=== PATIENT | female | born 1995 | race Caucasian/White ===

== ENCOUNTER 2019-02-12 14:55 | Inpatient (IN) ==
--- OUTSIDE RECORDS SUMMARY | 2019-02-12 14:59 | External Medical Summary | Continuity of Care Document ---
:1995 Author Name Christopher Mak, Provider Address Unavailable Unavailable , Care Team Providers Name Role Phone Diamond Evans Unavailable [email or web address] Case Jarvis JULIEN Unavailable [email or web address] PCP, NO Unavailable Unavailable Unavailable Unavailable Unavailable Problems Ulcerative colitis (556.9) (K51.90) Supervision of normal first in third trimester (V2 2.0) (Z34.03) Allergies and Adverse Reactions Delzicol CPDR (Allergy) Medications Mesalamine 1.2 GM Oral Tablet Delayed Release; Take 1 tablet twice daily SEKOU Hogan Quantity: 180 Refills: 3 Humira 40 MG/0.4ML Subcutaneous Prefille d Syringe Kit; INJECT 40 MG SQ EVERY OTHER WEEK SEKOU Hogan Start: 10-Nov-2018 Quantity: 1 2 x 1 Kit Box Refills: 5 Folic Acid 400 MCG Oral Tablet; TAKE 1 TABLET DAILY DIRECTED. SEKOU Hogan Quantity: 30 Refills: 5 Ferrous Sulfate 325 (65 Fe) MG Oral Tablet; TAKE 1 TABLET ON CE DAILY WITH MEAL Start: 15-Aug-2015 Refills: 0 Mesalamine 4 GM Rectal Enema; TAKE RECTALLY AT BEDTIME . RETAIN FOR 8 HOURS. SEKOU Hogan Start: 21-Dec-2018 Quantity: 420 Refills: 5 Vitamin D TABS Refills: 0 TABS Refills: 0 Procedures Non-stress test Date: 11-Feb-2019 Vitamin D, 25-Hydroxy Date: 25-Jan-2019 Quantiferon TB Gold Date: 25-Jan-2019 C-Reactive Protein Date: 25-Jan-2019 Comp Metabolic Panel + Liver Panel Date: 25-Jan-2019 CBC With DIFF Date: 25-Jan-2019 History of Complete Colonoscopy Status: Completed Immunizations Fluzone Quadrivalent 0.5 ML Intramuscular Suspension P refilled Syringe On: 25-Oct-2018 16:13 Lot #: [id number], SANOFI PASTEUR Tdap (Adacel) On: 16-Dec-2018 11:38 Lot #: [id number], SANOFI PASTEUR Family History Grandfather Family history of lung cancer (V16.1) (Z80.1) Status: Active Plan of Treatment Planned Encounters Appointment; Jarvis Arellano DO Start: 19-May-2019 10:[address] Planned Observations Planned Goals not documented Results Group B Strep/GARRETT 14-Jan-2019 0:00 GRP B BETA STREP CULTURE - GARRETT ORDERED P ROCEDURE : GRP B Beta Strep Culture -GARRETT; Specime nt : Vaginal/Rectal G roup B Strep Culture : No Group B Strep isolated Non-stress test (Pending) Laboratory: In House 11-Feb-2019 16:39 Non-Stress Test Reactive Vital Signs 11-Feb-2019 14:42 Systolic 120 mm[Hg] Diastolic 74 mm[Hg] Height 66.5 in BMI Calculated 27.35 kg/m2 Weight 172 lb BSA Calculated 1.89 m2 04-Feb-2019 13:39 Systolic 124 mm[Hg] Diastolic 80 mm[Hg] Height 66.5 in BMI Calculated 27.07 kg/m2 Weight 170.25 lb BSA Calculated 1.88 m2 28-Jan-2019 13:52 Systolic 110 mm[Hg] Diastolic 72 mm[Hg] Height 66.5 in BMI Calculated 27.38 kg/m2 Weight 172.2 lb BSA Calculated 1.89 m2 24-Jan-2019 13:43 Systolic 110 mm[Hg] Diastolic 72 mm[Hg] Weight 173 lb Respiration 14 /min Heart Rate 68 /min 21-Jan-2019 13:45 Systolic 102 mm[Hg] Diastolic 68 mm[Hg] Height 66.5 in BMI Calculated 27.54 kg/m2 Weight 173.2 lb BSA Calculated 1.89 m2 14-Jan-2019 14:26 Systolic 100 mm[Hg] Diastolic 70 mm[Hg] Height 66.5 in BMI Calculated 27.27 kg/m2 Weight 171.5 lb BSA Calculated 1.88 m2 Encounters Appointment; Uma Jose DO 11-Feb-2019 15:10 Encounter Diagnosis: Problem not documented Appointment; OB SC1, Nonstress Test 11-Feb-2019 14:30 Encounter Diagnosis: Problem not documented Appointment; Katerin Perea M.D. 04-Feb-2019 13:50 Encounter Diagnosis: Problem not documented Appointment; Arelis Lamb M.D. 28-Jan-2019 13:50 Encounter Diagnosis: Problem not documented Appointment; Asia Sousa PA-C 24-Jan-2019 13:20 Encounter Diagnosis: Problem not documented Appointment; Arelis Lamb M.D. 21-Jan-2019 13:50 Encounter Diagnosis: Problem not documented Appointment; Jarvis Arellano DO 20-Jan-2019 11:00 Encounter Diagnosis: Problem not documented Appointment; Coy Gomez M.D. 14-Jan-2019 14:30 Encounter Diagnosis: Problem not documented Appointment; Beatrice Emerson M.D. 31-Dec-2018 13:50 Encounter Diagnosis: Problem not documented Appointment; OBGYN SC2, Ultrasound 31-Dec-2018 13:30 Encounter Diagnosis: Problem not documented Appointment; Mikhail Lam M.D. 16-Dec-2018 11:50 Encounter Diagnosis: Problem not documented Appointment; Alphonse Bender CRNP 15-Dec-2018 10:00 Encounter Diagnosis: Problem not documented [facility] 15-Dec-2018 9:4 5 Encounter Diagnosis: Problem not documented Appointment; Beatrice Emerson M.D. 25-Oct-2018 15:00 Encounter Diagnosis: Problem not documented Appointment; OB SC1, Nursing Station 25-Oct-2018 13:30 Encounter Diagnosis: Problem not documented Appointment; Diamond Hogan CRNP 21-Oct-2018 9:30 Encounter Diagnosis: Problem not documented Appointment; Jarvis Arellano DO 19-May-2019 10:30 Encounter Diagnosis: Problem not documented
[2019-02-12] MEDS ORDERED: OXYTOCIN 30 UNITS/500 ML BAG IV PRN ×2 (15:08→23:38)
[2019-02-12 15:25] LABS: Hematocrit (blood only) 36.7 % (37-47); Hemoglobin 12.2 g/dL (12.0-16.0); Mean Corpuscular Volume 88.9 fL (80-100); Mean Platelet Volume 12.3 fL (7.4-10.4); Platelet Count 164 K/uL (130-400); RDW Coefficient of Variation 13.4 % (11.5-14.5); RDW Standard Deviation 43.8 fL (36.4-46.3); Red Blood Count 4.13 M/uL (4.2-5.4); White Blood Count 12.03 K/uL (4.8-10.8)
[2019-02-12] MEDS: LACTATED RINGER'S 1,000 ML IV PRN ×3 (15:25→21:16)
[2019-02-12 15:26] LABS: Mean Corpuscular Hgb Conc 33.2 g/dL (32-36)
--- NOTE | 2019-02-12 17:42 | History & Physical Report ---
Date of Service February 12, 2019 Assessment & Plan (1) 40 weeks gestation of : fetus category one. (2) Normal labor: admit, monitor, expectant managment for now. pit/arom as indicated. anticipate . History of Present Illness Chief Complaint: contractions Primary Care Provider: NO PCP Patient is a 23yowf, with iup at 40 1/7 weeks by first trimester ultrasound, not consistent with lmp. Presents to labor and delivery with increasing contractions. Some mucous d/c. no vb. +fm. essentially uncomplicated. Follows with GI for UC which has been fairly stable. Had low lying placenta, resolved at 32 week scan. labs--A+/ab neg/pap nl/ri/r;rnr/hepb-/hiv-/gc/ct-/ cf-/sma-/ gtt x 2 neg/panorama low risk female/afp neg/gbs neg meds--mesalamine both po and rectal enema, vit D, pnv, folic acid,, humira Allergies Allergy/AdvReac Type Severity Reaction Status Date / Time mesalamine [From Delzicol] Allergy Unknown Verified 02/12/19 14:31 Home Medications Home Medications Medication Instructions Recorded Confirmed Type adalimumab [Humira] 40 mg CQWK 02/12/19 02/12/19 History mesalamine 4 g PO DAILY 02/12/19 02/12/19 History vit-iron fum-folic ac 1 tab PO DAILY 02/12/19 02/12/19 History [ Vitamin] Patient History Surgical History H/O colonoscopy Ulcerative colitis Social History Preferred Language: German Communication Ability: Effective Conche Loader And Unloader Required: No Beliefs That Will Affect Care: None marital status: Current Living Situation: Spouse Other Information That Helps Us Care for You: No Feels Safe at Home: Yes Safety Concerns: Feels Safe At This Time Smoking Status: Never smoker Do You Dip or Chew Tobacco: No Second Hand Exposure: No Tobacco Cessation Education Requested by Patient: No Hx Alcohol Use: No Hx Substance Use: No 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 One sexual partner. normal menses. Review of Systems All systems reviewed & are unremarkable except as noted in HPI & below Physical Exam Constitutional: WD/WN, vitals as above Cardiovascular: Extremities: no calf tenderness, no pedal edema and no edema Gastrointestinal (Abdomen): abd--soft, nt, gravid Genitourinary: cx--5/90/-2 toco--2-5min efm--category one, accels present, reactive nst. Results & Data Vital Signs (Past 12 Hours) Vital Signs Temp Pulse Resp BP 02/12/19 15:59 72 108/71 02/12/19 15:32 78 115/70 02/12/19 15:17 97.7 F 18 02/12/19 15:15 97.7 F 18
[2019-02-12] MEDS ORDERED: ePHEDrine sulfate 50 MG/ML AMP ONE (18:10)
[2019-02-12] MEDS ORDERED: fentaNYL citrate 100 MCG/2 ML VIAL ONE (18:10)
[2019-02-12] MEDS ORDERED: BUPIVACAINE 0.25% 30 ML VIAL ONE (18:10)
[2019-02-12] MEDS ORDERED: fentaNYL 2MCG/ML ROPIV 1.25MG/ML 100 ML BAG EPI ONE (18:11)
--- NOTE | 2019-02-12 18:48 | Anesthesiology Consultation ---
Date of Service February 12, 2019 Assessment & Plan (1) Encounter for pre-operative examination: Chart Review Chart Review: Acceptable Risk for Labor Epidural Consults Requested none ASA ASA2 Proposed Anesthesia Anesthesia Type: Labor Epidural Risk / Benefits Reviewed With: PT / POA / Parent / Guardian, Accepts Plan and Informed Consent Obtained History Height/Weight Height: 5 ft 6.5 in Weight: 78.018 kg Allergies Allergy/AdvReac Type Severity Reaction Status Date / Time mesalamine [From Delzicol] Allergy Unknown Verified 02/12/19 14:31 Medications Home Medications Medication Instructions Recorded Confirmed Last Taken adalimumab [Humira] 40 mg CQWK 02/12/19 02/12/19 01/28/19 09:30 ferrous sulfate 325 02/12/19 02/12/19 09:30 mesalamine 4 g PO DAILY 02/12/19 02/12/19 02/12/19 09:30 mesalamine 4 g VA HS 02/12/19 02/12/19 Unknown iy-vg-pzjo-FA-herbal cmplx#190 1 tab PO DAILY 02/12/19 02/12/19 02/12/19 09:30 [Vitamin D3 Complete] vit-iron fum-folic ac 1 tab PO DAILY 02/12/19 02/12/19 02/12/19 09:30 [ Vitamin] Active Medications Generic Name Dose Route Start Last Admin Trade Name Freq PRN Reason Stop Dose Admin Lactated Ringer's 1,000 mls @ 125 mls/hr 02/12/19 15:08 02/12/19 18:13 Lr IV 02/14/19 15:07 999 mls/hr .Q8H PRN Infusion L&D Protocol Protocol Exercise / Class Metabolic Activity II 4-5 Yardwork/Stairs/Walk up hill Past Surgical History Surgical History Ulcerative colitis H/O colonoscopy Past Anesthesia History No Hx of Anesthesia Complications and No Family Hx of Anesthesia Complications History of PONV No Hx of PONV and No Hx of Motion Sickness Social History Smoking Status: Never smoker Do You Dip or Chew Tobacco: No Hx Alcohol Use: No Hx Substance Use: No substance use type: does not use Physical Exam Vital Signs Last Vital Signs Temp 97.7 F 02/12/19 15:17 Pulse 77 02/12/19 18:42 Resp 18 02/12/19 15:17 BP 114/68 02/12/19 18:34 Pulse Ox 98 02/12/19 18:42 ENMT Mouth: no dentition abnormality Thyromental Distance: > or= 3.5 Finger Breadths Mallampati Class: II Neck normal visual inspection Respiratory normal respiratory effort Auscultation: lungs clear to auscultation bilaterally Cardiovascular Rate/Rhythm: regular rate and regular rhythm
[2019-02-12] MEDS ORDERED: DiphenhydrAMINE HCL 50 MG/ML VIAL IV PRN (19:13)
[2019-02-12] MEDS ORDERED: ePHEDrine sulfate 50 MG/ML AMP IV PRN (19:13)
[2019-02-12] MEDS ORDERED: LACTATED RINGER'S 1,000 ML IV PRN (19:13)
[2019-02-12] MEDS ORDERED: ONDANSETRON INJ 2 MG/ML 2 ML VIAL IV PRN (19:13)
[2019-02-12] MEDS ORDERED: fentaNYL 2MCG/ML ROPIV 1.25MG/ML 100 ML BAG EPI PRN (19:13)
[2019-02-12] MEDS ORDERED: NALOXONE HCL 1 MG in SODIUM CHLORIDE 0.9% 1000ML 1,000 ML IV PRN (19:13)
[2019-02-12] MEDS ORDERED: NALOXONE HCL 0.4 MG/1 ML VIAL/CARP IV PRN (19:13)
[2019-02-12] MEDS ORDERED: NALBUPHINE HCL INJ 10 MG/ML AMP IV PRN (19:13)
--- NOTE | 2019-02-12 19:59 | Labor Progress Brief Note ---
Date of Service February 12, 2019 Subjective comfortable Assessment & Plan (1) Normal labor: continue expectant management, fetus category one, anticipate . Physical Exam Constitutional: WD/WN, vitals as above Genitourinary: cx--8-9/100/-1-0 arom--clear toco--q5min efm--130s wtih mod variability, accels to 160s, no decels Results & Data Vital Signs (Past 12 Hours) Vital Signs Temp Pulse Resp BP Pulse Ox 02/12/19 19:52 91 H 100 02/12/19 19:51 61 100/57 L 02/12/19 19:47 64 100 02/12/19 19:46 59 L 102/57 L 02/12/19 19:42 69 98/56 L 100 02/12/19 19:38 62 104/59 L 02/12/19 19:37 60 100 02/12/19 19:32 67 100 02/12/19 19:31 63 105/62 02/12/19 19:30 18 02/12/19 19:27 77 100/58 L 100 02/12/19 19:23 18 02/12/19 19:22 65 99/56 L 99 02/12/19 19:17 73 99 02/12/19 19:16 72 102/60 02/12/19 19:14 66 105/58 L 02/12/19 19:12 84 105/59 L 100 02/12/19 19:10 64 107/59 L 02/12/19 19:08 98.1 F 76 18 117/68 02/12/19 19:07 94 H 100 19 19:06 82 120/69 18/19 19:04 76 125/70 19 19:02 74 123/62 100 18/19 19:00 77 121/77 18/19 18:58 80 131/77 18/19 18:57 83 100 18/19 18:53 85 130/77 18/19 18:52 95 H 100 1819 18:47 77 99 0518/19 18:42 77 98 18/19 18:37 72 100 18/19 18:34 67 114/68 18/19 18:32 75 99 05/18/19 18:27 77 98 02/12/19 18:22 79 99 02/12/19 17:40 76 109/66 02/12/19 15:59 72 108/71 02/12/19 15:32 78 115/70 02/12/19 15:17 97.7 F 18 02/12/19 15:15 97.7 F 18
--- NOTE | 2019-02-12 23:05 | Medical Student Progress Note ---
Date of Service February 12, 2019 Subjective Preoperative Diagnosis: 1. Intrauterine keller 2. Normal labor Postoperative Diagnosis 1. Intrauterine keller 2. Normal labor Operative Procedures: 1. Epidural anesthesia 2. Amnionotomy 3. Normal spontaneous vaginal delivery 4. Stellate vaginal tear 5. Bilateral labial tear The patient is a 1 para 0 at 40 1/7 weeks that presented to L&D with regular contractions. She was found to be 5/90/-1 and had a category I tracing. She was expectantly managed and then received epidural anesthesia. surveillance remained reassuring. Following the epidural she was 9 cm dilated with bulging membranes. Amniotomy was performed with clear fluid. Shortly thereafter, the patient then felt pressure and was found to be 10 cm. She pushed for approximately one hour and then delivered a viable female infant in JONATHAN presentation. Nose and mouth suctioned and there was no nuchal cord. The anterior shoulder was delivered and the infant was then delivered easily. The infant was placed on the mother's chest for drying and warming. The umbilical cord was clamped and cut. Cord blood was collected. The placenta was delivered spontaneously and was intact and there was a three vessel cord. Uterine massage was performed and the patient continued to have some bleeding. She received IV Pitocin and IM methergine. Internal exam revealed a stellate vaginal tear which was repaired with 3-0 suture. There were also small bilateral labial tears which were repaired with 4-0 suture. Estimated total blood loss was 400mL. Mother and were doing well at the end of the procedures. scores 8, 9. Physical Exam Vital Signs (Past 24 Hours): Last Vital Signs Temp 36.7 C 02/12/19 19:08 Pulse 82 02/12/19 22:56 Resp 18 02/12/19 21:30 BP 109/60 02/12/19 22:56 Pulse Ox 100 02/12/19 22:42
[2019-02-12] MEDS ORDERED: SUPERCREAM 0.870% 15 GM JAR EXT PRN (23:38)
[2019-02-12] MEDS ORDERED: OXYCODONE/ACETAMINOPHEN 5mg/325mg TAB PO PRN (23:38)
[2019-02-12] MEDS ORDERED: METHYLERGONOVINE MALEATE 0.2 MG/ML AMP IM ONE (23:38)
[2019-02-12] MEDS ORDERED: BENZOCAINE 20% AER SPR 82.5 GM CAN EXT PRN (23:38)
[2019-02-12] MEDS ORDERED: HYDROCORTISONE ACETATE 25 MG SUPP PR PRN (23:38)
[2019-02-12] MEDS ORDERED: DIPHTHERIA/TETANUS/PERTUSSIS 0.5 ML SYR/VIAL IM ONE (23:38)
[2019-02-12] MEDS ORDERED: ACETAMINOPHEN 325 MG TAB PO PRN (23:38)
[2019-02-12] MEDS ORDERED: BISACODYL 10 MG SUPP PR PRN (23:38)
--- NOTE | 2019-02-12 23:40 | Delivery Summary ---
DATE OF OPERATION: 02/12/2019 PREOPERATIVE DIAGNOSES: 1. Intrauterine at 40 and 1/7 weeks. 2. Active labor. POSTOPERATIVE DIAGNOSES: 1. Intrauterine at 40 and 1/7 weeks. 2. Active labor. PROCEDURES: 1. Epidural anesthesia. 2. Amniotomy. 3. Normal spontaneous vaginal delivery. 4. Stellate vaginal laceration with repair. 5. Bilateral labial lacerations with repair. SURGEON: Beatrice Emerson MD SENIOR TECHNICAL EDITOR: JORGE Lucas. ESTIMATED BLOOD LOSS: 400 mL ANESTHESIA: Epidural and local infiltration of lidocaine to the perineum. DESCRIPTION OF PROCEDURE: The patient presented to labor and delivery in active labor at 5, 90, and -2. She was expectantly managed. She underwent an epidural anesthetic and was found to be 8-9 cm with a bulging bag in 0 station. Amniotomy was performed for clear fluid. She was allowed to labor down until she felt the urge to push. At that time, she pushed for a little over an hour to deliver a viable female infant in JONATHAN presentation. The nose and mouth were bulb suctioned. There was no nuchal cord and the rest of the infant was delivered without difficulty. The was placed on the maternal abdomen for drying and attention. The cord was clamped and cut at 1 minute of life. Cord blood and segment were obtained. Placenta was delivered spontaneously intact with a 3-vessel cord. Cervix, sulci, rectum, and perineal body were examined and found to be intact. However, a stellate vaginal laceration was identified. This was repaired starting on the patient's left at the apex coming to the vaginal introitus and then another suture was started at the right side apex coming to the introitus and the rest of the repair was performed. Then bilateral labial lacerations were repaired with interrupted sutures of 4-0 Vicryl. The area did require some infiltration with lidocaine for suturing. Once this was performed, hemostasis was noted to be excellent with dilute Pitocin and IM Methergine. Rectum was examined and no sutures in the rectum. Apgars were 8 and 9. Mother and baby were doing well at the end of the delivery. I attest to the content of the Intraoperative Record and any orders documented therein. Any exception s are noted below.
[2019-02-13 06:21] LABS: Hematocrit (blood only) 33.6 % (37-47); Hemoglobin 11.3 g/dL (12.0-16.0)
--- NOTE | 2019-02-13 08:18 | Obstetrical Progress Note ---
Date of Service February 13, 2019 Assessment & Plan (1) Normal labor: Doing well. routine pp care. Subjective Ambulation: ambulating normally Passing Gas:: Yes Diet Tolerance:: regular diet Lochia:: Small Feeding Type:: breast feeding Bottom ok, some discomfort Physical Exam Vital Signs (Past 24 Hours) Last Vital Signs Temp 98.4 F 02/13/19 03:38 Pulse 82 02/13/19 03:38 Resp 16 02/13/19 03:38 BP 120/70 02/13/19 03:38 Pulse Ox 96 02/13/19 03:38 Constitutional WD/WN, vitals as above Cardiovascular Extremities: no calf tenderness and no edema Gastrointestinal (Abdomen) soft, nt, nd, ff/nt at u
[2019-02-13] MEDS: DOCUSATE SODIUM 100 MG CAP PO SCH ×2 (09:16→22:46)
[2019-02-13] MEDS: PRENATAL VITAMIN 1 TAB PO SCH (09:16)
[2019-02-13] MEDS: IBUPROFEN 600 MG TAB PO PRN ×2 (09:16→22:46)
--- NOTE | 2019-02-13 09:28 | Anesthesia Procedure Note ---
Date of Service February 13, 2019 Anesthesia Post Epidural Note Vital Signs Vital Signs: Temp Pulse Pulse Resp BP BP Pulse Ox 02/13/19 03:38 36.9 C 82 16 120/70 96 02/13/19 01:07 37.1 C 76 18 116/70 97 02/13/19 00:45 36.6 C 85 16 111/71 02/13/19 00:15 83 18 120/72 02/12/19 23:42 73 18 120/67 02/12/19 23:28 76 20 125/60 02/12/19 23:13 81 18 130/57 L 02/12/19 22:56 82 16 109/60 02/12/19 22:42 84 100 02/12/19 22:41 85 113/65 02/12/19 22:40 78 18 109/59 L 02/12/19 22:37 76 100 02/12/19 22:32 88 100 02/12/19 22:27 102 H 100 02/12/19 22:26 96 H 109/53 L 02/12/19 22:22 99 H 98 02/12/19 22:17 111 H 98 02/12/19 22:15 20 02/12/19 22:12 134 H 99 02/12/19 22:11 132 H 90 02/12/19 22:07 147 H 97 02/12/19 22:04 118 H 120/56 L 02/12/19 22:02 123 H 98 02/12/19 22:00 20 02/12/19 21:59 118 H 93 02/12/19 21:57 138 H 99 02/12/19 21:53 117 H 89 L 02/12/19 21:52 113 H 98 02/12/19 21:47 101 H 99 02/12/19 21:46 114 H 85 L 02/12/19 21:45 20 02/12/19 21:42 100 H 107/59 L 98 02/12/19 21:40 122 H 93 02/12/19 21:37 90 99 02/12/19 21:35 119 H 89 L 02/12/19 21:32 116 H 100 02/12/19 21:30 18 02/12/19 21:29 119 H 93 02/12/19 21:28 80 120/62 02/12/19 21:27 96 H 100 05/18/19 21:22 86 100 05/18/19 21:17 99 H 99 05/18/19 21:12 92 H 100 05/18/19 21:11 80 114/69 05/18/19 21:07 75 100 05/18/19 21:02 77 100 05/18/19 21:00 20 05/18/19 20:57 79 100 05/18/19 20:56 73 108/62 05/18/19 20:52 86 100 05/18/19 20:47 70 100 05/18/19 20:43 75 113/75 05/18/19 20:42 75 100 05/18/19 20:37 71 100 05/18/19 20:32 84 100 05/18/19 20:30 18 051819 20:27 65 100 05/18/19 20:26 72 106/63 05/18/19 20:22 64 100 05/18/19 20:17 65 100 05/18/19 20:15 16 051819 20:12 73 100 05/18/19 20:11 74 117/64 05/18/19 20:07 75 100 05/18/19 20:02 63 100 05/18/19 20:00 18 051819 19:57 69 125/73 100 05/18/19 19:52 91 H 100 0518/19 19:51 61 100/57 L 0518/19 19:47 64 100 05/18/19 19:46 59 L 102/57 L 0518/19 19:45 20 05/18/19 19:42 69 98/56 L 100 0518/19 19:38 62 104/59 L 0518/19 19:37 60 100 05/18/19 19:32 67 100 05/18/19 19:31 63 105/62 05/18/19 19:30 18 05/18/19 19:27 77 100/58 L 100 05/18/19 19:23 18 05/18/19 19:22 65 99/56 L 99 05/18/19 19:17 73 99 05/18/19 19:16 72 102/60 05/18/19 19:14 66 105/58 L 05/18/19 19:12 84 105/59 L 100 05/18/19 19:10 64 107/59 L 05/18/19 19:08 36.7 C 76 18 117/68 02/12/19 19:07 94 H 100 02/12/19 19:06 82 120/69 02/12/19 19:04 76 125/70 02/12/19 19:02 74 123/62 100 02/12/19 19:00 77 121/77 02/12/19 18:58 80 131/77 02/12/19 18:57 83 100 02/12/19 18:53 85 130/77 02/12/19 18:52 95 H 100 02/12/19 18:47 77 99 02/12/19 18:42 77 98 02/12/19 18:37 72 100 02/12/19 18:34 67 114/68 02/12/19 18:32 75 99 02/12/19 18:27 77 98 02/12/19 18:22 79 99 02/12/19 17:40 76 109/66 02/12/19 15:59 72 108/71 02/12/19 15:32 78 115/70 02/12/19 15:17 36.5 C 18 02/12/19 15:15 36.5 C 18 Pain Intensity Lower Abdomen: Pain Intensity: 2 Notes Mental Status: alert / awake / arousable Patient Amnestic to Procedure: No Nausea / Vomiting: adequately controlled Pain: adequately controlled Airway Patency, RR, SpO2: stable & adequate BP & HR: stable & adequate Hydration State: stable & adequate Anesthetic Complications: no major complications apparent Epidural: Removed without complications and With tip intact Notes: Awake, doing well, Has been OOB, ambulating. Denies any paresthesia, YOUNGBLOOD or backache. Epidural site looks clean and dry without signs of edema or erythema.
[2019-02-13] MEDS ORDERED: BISACODYL 5 MG TABEC PO SCH (20:00)
--- NOTE | 2019-02-14 06:58 | Obstetrical Progress Note ---
Date of Service <David Cervantes MD - Last Filed: 02/14/19 06:58> February 14, 2019 Assessment & Plan <David Cervantes MD - Last Filed: 02/14/19 06:58> (1) (normal spontaneous vaginal delivery): day 2 s/p at 40 W 1 D Vital Signs Reviewed and WNL Hemoglobin 11.3 Blood type A+, GBS - Rubella Immune Patient doing very well clinically, eating, walking and using restroom without difficulty Encouraged ambulation as tolerated, continuing with breast feeding Counselled patient on all discharge instructions and follow up appointment Day #:: 2 Subjective <David Cervantes MD - Last Filed: 02/14/19 06:58> Ambulation: ambulating normally Voiding: no voiding problems Passing Gas:: Yes Diet Tolerance:: regular diet Lochia:: Small Feeding Type:: breast feeding Mild crampy uterine pain, intermittently Constitutional: no fever, no chills and no sweats Respiratory: no cough and no dyspnea Cardiovascular: no chest pain, no dyspnea and no calf pain Physical Exam <David Cervantes MD - Last Filed: 02/14/19 06:58> Vital Signs (Past 24 Hours) Last Vital Signs Temp 36.6 C 02/13/19 23:25 Pulse 65 02/13/19 23:25 Resp 18 02/13/19 23:25 BP 105/63 02/13/19 23:25 Pulse Ox 97 02/13/19 12:00 Constitutional well developed and well nourished; no acute distress Respiratory normal respiratory effort; no respiratory distress, no labored breathing and does not use accessory muscles Auscultation: lungs clear to auscultation bilaterally Cardiovascular RRR, no murmur, no edema Genitourinary OB Exam Abdomen: + fundal height Fundus: + firm and + relation to umbilicus (2 cm below umbilicus); not tender <Beatrice Emerson MD, FACOG - Last Filed: 02/14/19 07:48> Co-Signing Physician Notes Resident Physician Supervision Note: I interviewed and examined the patient. Discussed with Dr. Cervantes and agree with findings and plan as documented in the note. Any exceptions or clarifications are listed here: Doing well. Instuctions given. Plan d/c home. Documented By: Beatrice Emerson MD, FACOG Resident Activity Tracking <David Cervantes MD - Last Filed: 02/14/19 06:58> Resident Involvement: Resident Care Provided Care Provided: Adult Hospital Medicine
[2019-02-14] MEDS: DOCUSATE SODIUM 100 MG CAP PO SCH (07:43)
[2019-02-14] MEDS: PRENATAL VITAMIN 1 TAB PO SCH (07:43)
== END 2019-02-14 18:46 | disposition home or self-care (01) | DRG 807 ==
LOC: OPB 14:55 → 4S1 14:57 → 4S2 02-13 01:05

== ENCOUNTER 2021-03-16 08:49 | Inpatient (IN) ==
[2021-03-16] MEDS ORDERED: LACTATED RINGER'S 1,000 ML IV PRN (09:14)
[2021-03-16] MEDS ORDERED: BUPIVACAINE 0.25% 30 ML VIAL ONE (09:16)
[2021-03-16] MEDS ORDERED: fentaNYL 2MCG/ML ROPIVACAINE 1.25MG/ML 100 ML BAG EPI ONE (09:16)
[2021-03-16] MEDS ORDERED: ePHEDrine sulfate 50 MG/ML AMP ONE (09:16)
[2021-03-16] MEDS ORDERED: fentaNYL citrate 100 MCG/2 ML VIAL ONE (09:16)
[2021-03-16] MEDS ORDERED: SODIUM CHLORIDE 0.9% INJ 10 ML VIAL ONE (09:16)
--- NOTE | 2021-03-16 09:18 | Labor Progress Brief Note ---
Date of Service March 16, 2021 Subjective at 39w1d with c/o contractions Q12min last night closing down to Q5min this morning, no ROM, no VB, good FM. Prior uncomplicated vaginal delivery with epidural, wants same for this delivery. Assessment & Plan (1) Normal labor and delivery: Patient labored spontaneously to near complete dilation. Would still like epidural if at all possible, and will get STAT labs and IV placement / bolus now. GBS neg. Physical Exam Physical Exam: lip/100/+1/intact mucus plug material on labia FHT Cat 1 [place] Q2-5 Results & Data ([facility]) Vital Signs (Past 12 Hours) Vital Signs Temp Pulse Resp BP 03/16/21 08:56 98.2 F 67 20 107/64 Coding Level of Care Code None Diagnoses Normal labor and delivery O80
--- NOTE | 2021-03-16 09:21 | Anesthesiology Consultation ---
Date of Service March 16, 2021 Assessment & Plan (1) Encounter for pre-operative examination: Chart Review Chart Review: Acceptable Risk for Labor Epidural (Labs pending) History Allergies Allergy/AdvReac Type Severity Reaction Status Date / Time mesalamine [From Delzicol] Allergy Intermediate kidney Verified 03/12/21 14:46 function levels went up Medications Home Medications Medication Instructions Recorded Confirmed Last Taken Vitamin 1 tab PO QAM 02/12/19 03/12/21 11/11/19 09:00 mesalamine 4 gram/60 mL enema See Rx Instructions .ROUTE 05/10/20 03/12/21 Unknown .COMPLEX #1680 ml adalimumab 40 mg/0.4 mL See Rx Instructions .ROUTE 02/19/21 03/12/21 Unknown subcutaneous syringe kit .COMPLEX #2 ea Past Medical History Medical History History of anemia History of anesthesia reaction during last colonoscopy in 2017 BP dropped very low, had to stop procedure early Normal labor (normal spontaneous vaginal delivery) Patient is a currently breast-feeding mother Past Family History Family History Grandfather Lung cancer Other No family history of adverse response to anesthesia Denies family history of Ovarian cancer Prostate cancer Myocardial infarction Breast cancer Colorectal cancer Past Surgical History Surgical History History of colonoscopy with polypectomy History of esophagogastroduodenoscopy (EGD) History of tooth extraction under local Social History Smoking Status: Never smoker Hx Alcohol Use: No Hx Substance Use: No substance use type: does not use Physical Exam Vital Signs Last Vital Signs Temp 36.8 C 03/16/21 08:56 Pulse 67 03/16/21 08:56 Resp 20 03/16/21 08:56 BP 107/64 03/16/21 08:56
[2021-03-16 09:42] LABS: Hematocrit (blood only) 40.6 % (37-47); Hemoglobin 14.2 g/dL (12.0-16.0); Mean Corpuscular Hemoglobin 32.9 pg (25-34); Mean Corpuscular Volume 94.2 fL (80-100); Mean Platelet Volume 11.8 fL (7.4-10.4); Platelet Count 153 K/uL (130-400); RDW Coefficient of Variation 13.3 % (11.5-14.5); RDW Standard Deviation 46.2 fL (36.4-46.3); Red Blood Count 4.31 M/uL (4.2-5.4)
[2021-03-16] MEDS: OXYTOCIN 30 UNITS/500 ML BAG IV PRN ×2 (09:50→11:08)
--- NOTE | 2021-03-16 09:57 | Delivery Summary ---
Vaginal Delivery Summary Date of Service March 16, 2021 Vaginal Delivery Summary DIAGNOSES: 1. Liang intrauterine at 39w1d gestation. 2. Spontaneous onset of labor. 3. Group B Streptococcus Neg. PROCEDURE: Spontaneous vaginal delivery without significant laceration. SURGEON: Katerin Perea MD. SCANNING SUPERVISOR: None. ESTIMATED BLOOD LOSS: 350 mL. COMPLICATIONS: None. PLACENTA: Spontaneous and intact with a 3-vessel cord. DISPOSITION: Stable to labor and delivery. DESCRIPTION: The patient pushed well and brought the head to in DOA position. The 's head was allowed to deliver with contraction force and no further active pushing, with the perineum protected during this time. The shoulders delivered easily with a maternal pushing effort. There was no nuchal cord. The left shoulder was anterior. The shoulders and body delivered without any difficulty, and the infant was placed on the maternal abdomen. It was vigorous and moving all extremities, and making respiratory efforts. The cord was doubly clamped by the MD and then cut. The placenta delivered spontaneously and was noted to be intact and with a 3VC. The cervix, vagina and perineum were examined and were found to be without defect requiring repair. The fundus was firm and lochia minimal immediately after delivery. [facility] Vaginal Delivery Charge Vaginal Delivery Codes: 43336 global code for the antepartum, delivery, and post-
[2021-03-16] MEDS ORDERED: oxyCODONE/ACETAMINOPHEN 5mg/325mg TAB PO PRN (11:13)
[2021-03-16] MEDS ORDERED: BENZOCAINE 20% AER SPR 82.5 GM CAN EXT PRN (11:13)
[2021-03-16] MEDS ORDERED: ACETAMINOPHEN 325 MG TAB PO PRN (11:13)
[2021-03-16] MEDS ORDERED: SUPERCREAM 0.870% 15 GM JAR EXT PRN (11:13)
[2021-03-16] MEDS ORDERED: DIPHTHERIA/TETANUS/PERTUSSIS 0.5 ML SYR/VIAL IM ONE (11:13)
[2021-03-16] MEDS ORDERED: HYDROCORTISONE ACETATE 25 MG SUPP PR PRN (11:13)
[2021-03-16] MEDS: IBUPROFEN 600 MG TAB PO PRN (11:33)
[2021-03-16] MEDS: DOCUSATE SODIUM 100 MG CAP PO SCH (20:18)
[2021-03-17 06:07] LABS: Hematocrit (blood only) 36.9 % (37-47); Hemoglobin 12.8 g/dL (12.0-16.0); Mean Corpuscular Hemoglobin 33.2 pg (25-34); Mean Corpuscular Hgb Conc 34.7 g/dL (32-36); Mean Corpuscular Volume 95.8 fL (80-100); Mean Platelet Volume 11.9 fL (7.4-10.4); Platelet Count 139 K/uL (130-400); RDW Coefficient of Variation 13.6 % (11.5-14.5); RDW Standard Deviation 47.7 fL (36.4-46.3); Red Blood Count 3.85 M/uL (4.2-5.4); White Blood Count 13.23 K/uL (4.8-10.8)
[2021-03-17] MEDS ORDERED: PRENATAL VITAMIN 1 TAB PO SCH (08:00)
[2021-03-17] MEDS: DOCUSATE SODIUM 100 MG CAP PO SCH (08:10)
[2021-03-17] MEDS: IBUPROFEN 600 MG TAB PO PRN (08:10)
--- NOTE | 2021-03-17 09:12 | Obstetrical Progress Note ---
Date of Service March 17, 2021 Subjective Ambulation: ambulating normally Voiding: no voiding problems Passing Gas:: Yes Diet Tolerance:: regular diet Lochia:: Small Feeding Type:: breast feeding Physical Exam Constitutional WD/WN, vitals as above Eyes PERRL, conjunctivae normal, anicteric sclerae Neck normal visual inspection Respiratory normal respiratory effort and able to speak in complete sentences; no respiratory distress and no labored breathing Cardiovascular Rate/Rhythm: regular rate and regular rhythm Extremities: no edema Chest (Breasts) Chest: normal inspection of chest Gastrointestinal (Abdomen) Inspection/Auscultation: abdomen normal to inspection Soft, postgravid Psychiatric A+Ox3, euthymic affect Genitourinary OB Exam Abdomen: + fundal height Fundus: + firm and + relation to umbilicus (fundus just below umbilicus); not tender Results & Data ([facility]) Vital Signs (Past 12 Hours) Vital Signs Temp Pulse Resp BP Pulse Ox 03/17/21 04:00 98.1 F 67 16 99/64 L 96 03/16/21 23:00 98.2 F 61 16 99/60 L 96
== END 2021-03-17 12:20 | disposition home or self-care (01) | DRG 807 ==
LOC: OPB 08:49 → 4S1 08:49 → 4S2 14:13

== ENCOUNTER 2023-02-06 07:45 | Inpatient (IN) ==
[2023-02-06] MEDS ORDERED: OXYTOCIN 30 UNITS/500 ML BAG IV PRN ×3 (08:33→16:41)
[2023-02-06] MEDS ORDERED: LACTATED RINGER'S 1,000 ML IV PRN (08:33)
[2023-02-06] MEDS ORDERED: LIDOCAINE 1% LOCAL 20 ML VIAL INFIL PRN (08:33)
--- NOTE | 2023-02-06 08:56 | History & Physical Report ---
Date of Service February 06, 2023 Assessment & Plan (1) Anemia: (2) Encounter for supervision of normal in multigravida: (3) Ulcerative proctosigmoiditis: Plan Miley is a 27 year-old female at 40w6d gestation who presents today for post-dates induction of labor. -Plan to proceed with induction of labor, will start Pitocin -A+, GBS negative, Rubella immune -3 cm/50%/-2 station, fetus cat 1 -Patient undecided at this time if she desires epidural Admission and Anticipated Discharge Date Admission Date: February 06, 2023 History of Present Illness Primary Care Provider: Andrea Saravia MD Miley is a 27 year-old female at 40w6d gestation who presents today for post-dates induction of labor. Her past medical history is significant for ulcerative colitis. She notes normal movement, denies loss of fluid, vaginal bleeding, or any current contractions. READING SPECIALIST History -Normal PAPs -No known history of STDs Del. Date GA wks Lbr Lgth wt Sex Type del Anes Place Del Prov ? Comment 02/12/19 40 8lb 7oz F Epidu ral [facility] Dr. Emerson No 03/16/21 39 7lb 10.8oz F No ne [facility] Dr. Perea No OB Labs: Blood Type A Positive 08/19/22 Antibody Screen NEGATIVE 08/19/22 Hemoglobin 11.5 g/dl (12.0-16.0) L 11/14/22 Hematocrit 34.8 % (37.0-47.0) L 11/14/22 Mean Corpuscular Volume 89.2 fL (80.0-100.0) 08/24/22 Platelet Count 193 K/uL (130-400) 08/24/22 Rubella IgG Antibody Immune (Immune) 08/19/22 Rapid Plasma Reagin Nonreactive (Nonreactive) 08/19/22 Hepatitis B Surface Antigen Neg (Neg) 09/11/20 Hepatitis B Surface Antigen. NON-REACTIVE (NON-REACTIVE) 08/19/22 Hepatitis C Antibody (EIA) NON-REACTIVE (NON-REACTIVE) 08/19/22 HIV (1&2) Ab and P24 Ag, 4th Gener Neg (Neg) 09/11/20 HIV (1&2) Ag and Ab Confirmation NON-REACTIVE (NON-REACTIVE) 08/19/22 Glucose 1 Hour 50 gm Load 94 mg/dl (70-130) 11/14/22 OB Optional Labs: Chlamydia trachomatis RNA Not Detected (NotDetected) 07/09/22 Neisseria gonorrhoeae RNA Not Detected (NotDetected) 07/09/22 Thyroid Stimulating Hormone (TSH) 2.401 uIu/ml (0.300-4.500) 06/18/22 Labs Reviewed: low risk panorama--akh afp declined neg cf/sma previous Allergies Allergy/AdvReac Type Severity Reaction Status Date / Time mesalamine [From Delzicol] Allergy Intermediate kidney Verified 02/05/23 15:09 function levels went up Home Medications Medication Instructions Recorded Confirmed Type adalimumab 40 mg/0.4 mL See Rx Instructions .Route 04/15/22 02/05/23 Rx subcutaneous syringe kit .COMPLEX #4 KITS (Humira(CF)) mesalamine 4 gram/60 mL enema 4 g AK HS 08/24/22 02/05/23 History betamethasone dipropionate 0.05 % 1 applic topical DAILY #60 mL 12/04/22 02/05/23 Rx lotion ketoconazole 2 % shampoo 1 applic topical .COMPLEX #120 mL 12/04/22 02/05/23 Rx Patient History Medical History History of anemia History of anesthesia reaction History of chicken pox Mother currently breast-feeding Psoriasis Ulcerative colitis Surgical History History of colonoscopy with polypectomy History of esophagogastroduodenoscopy (EGD) Family History Grandfather Lung cancer Other No family history of adverse response to anesthesia Denies family history of Ovarian cancer Prostate cancer Myocardial infarction Breast cancer Colorectal cancer Social History Smoking Status: Never smoker Second Hand Exposure: No; Do You Dip or Chew Tobacco: No; Hx Alcohol Use: No Hx Substance Use: No Preferred Language: Wolof Communication Ability: Effective Visual Impairment: No Limitations Hearing Ability: Normal Voip Engineer Required: No Beliefs That Will Affect Care: None marital status: marital status details: London Mccann (36) [phone] Current Living Situation: Spouse and Family Current Living Situation Comment: Lives with spouse, 2 children, rabbit, dog current occupational status: unemployed current occupation: homemaker Feels Safe at Home: Yes Childhood Exposure to Second-Hand Smoke: Yes Dental Care, Regularly: Yes Physical Activity Frequency: 5-6 Times per Week Seatbelt Use: always Sunscreen Use: Yes Assistive Devices: None Review of Systems As per HPI Physical Exam Constitutional: WD/WN, vitals as above Eyes: Anicteric sclerae ENMT: External ears and nose normal, moist mucous membranes Respiratory: normal respiratory effort, lungs clear to auscultation Cardiovascular: RRR, no murmur, no edema No lower extremity edema Skin: no rashes, warm and dry Genitourinary: Manual OB Exam: + cervical dilation 3 cm, + cervical effacement 50% and + station -2 OB Exam Monitor Tracing: + external FHT monitor used and + category I Estimated weight 8-9 lbs Results & Data Vital Signs (Past 12 Hours) Vital Signs Temp Pulse Resp BP 02/06/23 08:02 36.6 C 69 20 114/67 Supervising Physician Co-Signing Physician Notes Resident Physician Supervision Note: I interviewed and examined the patient. Discussed with Dr. Justice and agree with findings and plan as documented in the note. Any exceptions or clarifications are listed here: Patient is a with iup at 40 5/7 weeks who presents for postdates induction. Was 1.5cm in the office yesterday. Had discussed with Dr. Jessica abad pit today. On my exam she is a tight 3/50/- 2/mid/mod. Do not think will benefit alot from a abad. Plan to start pitocin. fetus category one. Anticipate . Documented By: Beatrice Emerson MD, FACOG Resident Activity Tracking Resident Involvement: Resident Care Provided Care Provided: OB Delivery
[2023-02-06 09:19] LABS: Hematocrit (blood only) 34.5 % (37.0-47.0); Hemoglobin 11.9 g/dl (12.0-16.0); Mean Corpuscular Hemoglobin 32.2 pg (25.0-34.0); Mean Corpuscular Hgb Conc 34.5 g/dL (32.0-36.0); Mean Corpuscular Volume 93.2 fL (80.0-100.0); Platelet Count 126 K/uL (130-400); RDW Coefficient of Variation 13.2 % (11.5-14.5); RDW Standard Deviation 45.3 fL (36.4-46.3); White Blood Count 12.92 K/ul (4.8-10.8)
--- NOTE | 2023-02-06 14:12 | Labor Progress Brief Note ---
Date of Service February 06, 2023 Subjective Feeling ctx Assessment & Plan (1) Encounter for supervision of normal in multigravida: Plan: 27 yo at 40 5/7 wga admitted for IOL VSS Fetus cat 1 Labor - s/p arom, pit at 13 gbs neg declines epidural Admission and Anticipated Discharge Date Admission Date: February 06, 2023 Physical Exam Genitourinary: Manual OB Exam: + cervical dilation 4 cm, + cervical effacement 60% and + station -2 OB Exam Monitor Tracing: + external FHT monitor used, + external uterine monitor used (q3) and + category I (125/mod/+accel/-decel) Results & Data Vital Signs (Past 12 Hours) Vital Signs Temp Pulse Resp BP 02/06/23 13:20 69 02/06/23 13:20 123/70 02/06/23 11:48 65 02/06/23 11:48 100/59 L 02/06/23 08:02 97.9 F 69 20 114/67 Coding Level of Care Code None Diagnoses Encounter for supervision of normal in multigravida Z34.80
--- NOTE | 2023-02-06 15:42 | Labor Progress Brief Note ---
Date of Service February 06, 2023 Subjective Desires check Assessment & Plan (1) Encounter for supervision of normal in multigravida: Plan: 27 yo at 40 5/7 wga admitted for IOL VSS Fetus cat 1 Labor - has progressed but now compound hand noted despite head palpating well applied previously. Has had significant amount of fluid come out since arom so ?if it moved during that. Discussed this w/ pt and attempted to reduce the compound and it did respond so will need to continue to monitor. Discussed if persists with this being her 3rd baby, as long as still progresses can still attempt delivery as majority of cases have uncomplicated delivery but did discuss potential risk associated if persists gbs neg declines epidural Admission and Anticipated Discharge Date Admission Date: February 06, 2023 Physical Exam Genitourinary: Manual OB Exam: + cervical dilation 8 cm, + cervical effacement 70% and + station 0 OB Exam Monitor Tracing: + external FHT monitor used, + external uterine monitor used (q3) and + category II (140s/mod/+accel/variables noted) compound presentation palpated with hand on pt's left, was able to reduce the hand a bit Results & Data Vital Signs (Past 12 Hours) Vital Signs Temp Pulse Resp BP 02/06/23 14:49 20 02/06/23 14:49 98.2 F 20 02/06/23 14:49 78 02/06/23 14:49 112/72 02/06/23 13:20 69 02/06/23 13:20 123/70 02/06/23 11:48 65 02/06/23 11:48 100/59 L 02/06/23 08:02 97.9 F 69 20 114/67 Coding Level of Care Code None Diagnoses Encounter for supervision of normal in multigravida Z34.80
[2023-02-06] MEDS ORDERED: DIPHTHERIA/TETANUS/PERTUSSIS Vaccine (Tdap, Age 7+yrs) 0.5mL SYR/VL IM ONE (16:41)
[2023-02-06] MEDS ORDERED: HYDROCORTISONE ACETATE 25 MG SUPP PR PRN (16:41)
[2023-02-06] MEDS ORDERED: bisacodyL 10 MG SUPP PR PRN (16:41)
[2023-02-06] MEDS ORDERED: ACETAMINOPHEN 325 MG TAB PO PRN (16:41)
[2023-02-06] MEDS ORDERED: BENZOCAINE 20% AER SPR 82.5 GM CAN EXT PRN (16:41)
--- NOTE | 2023-02-06 16:47 | Delivery Summary ---
Vaginal Delivery Summary Date of Service February 06, 2023 Vaginal Delivery Summary (vaginal laceration) PREOPERATIVE DIAGNOSIS: 1. Single intrauterine at 40 5/7 2. Post-dates IOL POSTOPERATIVE DIAGNOSIS: 1. Single intrauterine at 40 5/7 2. Post-dates IOL 3. Compound presentation 4. Delivered PROCEDURE: 1. Normal spontaneous vaginal delivery. SURGEON: Alyse Lopez MD ANESTHESIA: Local ESTIMATED BLOOD LOSS: 300 mL FLUIDS: Continuous LR. URINE OUTPUT: None. COMPLICATIONS: None. CONDITION: Stable. INDICATIONS: 27 yo at 40 5/7 wga presented for induction of labor. She was 3cm on arrival and pitocin was started. She underwent AROM and continued to progress. Following AROM, pt had multiple very large gushes of fluid and at next check when pt was uncomfortable, the hand was palpated at the head. This was discussed with the pt that I suspect it moved during these large fluid gushes, maternal repositioning and reduction of hand was attempted. This did resolve it at this time but at next check was noted to have returned. Pt continued to progress during this time and so continued to be managed expectantly. She reached complete and then desired to push. FINDINGS: A viable male infant, weight pending with Apgars of 8 and 9 at 1 and 5 minutes respectively. SPECIMEN: Cord blood OPERATIVE REPORT: The patient progressed to 10 cm, 100% effaced and +2 station, pushed over intact perineum with anesthesia to deliver a viable male , weight and Apgars as above. Head of delivered in JONATHAN position with compound left hand at the head. Nuchal cord was noted to also wrap around the body and back around neck after it was delivered through. Body and shoulders were delivered without difficulty. was delivered to maternal abdomen and nursing staff. Delayed cord clamping was performed for 60 seconds. Cord was clamped and cut. Cord blood was obtained. Placenta delivered spontaneously intact with 3-vessel cord. IV oxytocin and fundal massage were given for excellent hemostasis. Vagina, cervix, perineum, and placenta were inspected. A vaginal laceration was noted and repaired using 3-0 vicryl. There was excellent hemostasis. Sponge and needle counts correct x2. No sponges were left behind. Mother and stable in immediate period. 's left arm and hand appeared to be ok on immediate inspection after delivery, reviewed with pt. [facility] Vaginal Delivery Charge Vaginal Delivery Codes: 95924 global code for the antepartum, delivery, and post- Delivery Type Details: (vaginal laceration)
[2023-02-06] MEDS: IBUPROFEN 600 MG TAB PO PRN ×2 (17:41→22:32)
[2023-02-06] MEDS: DOCUSATE SODIUM 100 MG CAP PO SCH (20:42)
[2023-02-07] MEDS: IBUPROFEN 600 MG TAB PO PRN ×3 (04:08→16:00)
--- NOTE | 2023-02-07 05:53 | Obstetrical Progress Note ---
Date of Service February 07, 2023 Assessment & Plan (1) Ulcerative proctosigmoiditis: (2) Anemia: (3) Encounter for supervision of normal in multigravida: Ansley Trent is a 27 year-old female who is PPD #1 following at 40w6d. -Meeting all milestones -Vital signs reviewed and WNL -A+/GBS neg/Rubella immune -Follow up in 6 weeks for appointment -Continue routine care -Plan to d/c today Admission and Anticipated Discharge Date Admission Date: February 06, 2023 Supervising Physician Co-Signing Physician Notes Resident Physician Supervision Note: I interviewed and examined the patient. Discussed with Dr. Justice and agree with findings and plan as documented in the note. Any exceptions or clarifications are listed here: PP1 s/p c/b compound hand. VSS, exam benign and wnl. Desires dc home at 24 hrs, ok t odo so Documented By: Alyse Lopez MD Idalia Trent is a 27 year-old female who is PPD #1 following at 40w6d. Her delivery was complicated by compound presentation (hand). She reports feeling well overall this morning, just tired. Notes abdominal cramping but pain well managed on analgesics. Voiding without issue. Tolerating meals overnight and able to ambulate some. Has some persistent lochia with some improvement this morning. Currently breast feeding. Review of Systems Constitutional: no fever, no chills and no sweats Respiratory: no cough, no dyspnea and no wheezing Cardiovascular: no chest pain, no palpitations and no calf pain Genitourinary: no dysuria Neurologic: no headache(s) Physical Exam Constitutional: WD/WN, vitals as above no acute distress Respiratory: no respiratory distress Auscultation: lungs clear to auscultation bilaterally; no rales, no rhonchi and no wheezes Cardiovascular: RRR, no murmur, no edema Extremities: no calf tenderness and no edema Negative Kadie's sign bilaterally. Gastrointestinal (Abdomen): Inspection/Auscultation: normal bowel sounds Genitourinary: Uterine fundus firm, palpable below the umbilicus. Results & Data Vital Signs (Past 12 Hours) Vital Signs Temp Pulse Pulse Resp BP BP Pulse Ox 02/06/23 23:35 37.1 C 60 18 100/62 96 02/06/23 20:00 37.1 C 79 16 104/61 97 02/06/23 18:39 97 H 02/06/23 18:39 100/55 L 02/06/23 18:24 82 02/06/23 18:24 105/57 L 02/06/23 18:09 85 02/06/23 18:09 104/58 L 02/06/23 17:54 83 02/06/23 17:54 103/58 L O2 Del Method 02/06/23 23:35 Room Air 02/06/23 20:00 Room Air 02/06/23 18:39 02/06/23 18:39 02/06/23 18:24 02/06/23 18:24 02/06/23 18:09 02/06/23 18:09 02/06/23 17:54 02/06/23 17:54 Resident Activity Tracking Resident Involvement: Resident Care Provided Care Provided: OB Delivery
[2023-02-07 07:00] LABS: Hematocrit (blood only) 33.3 % (37.0-47.0); Hemoglobin 11.4 g/dl (12.0-16.0); Mean Corpuscular Hemoglobin 32.2 pg (25.0-34.0); Mean Corpuscular Hgb Conc 34.2 g/dL (32.0-36.0); Mean Corpuscular Volume 94.1 fL (80.0-100.0); Mean Platelet Volume 12.1 fL (9.4-12.4); Platelet Count 131 K/uL (130-400); RDW Coefficient of Variation 13.2 % (11.5-14.5); RDW Standard Deviation 45.5 fL (36.4-46.3); Red Blood Count 3.54 M/uL (4.20-5.40); White Blood Count 17.75 K/ul (4.8-10.8)
[2023-02-07] MEDS ORDERED: PRENATAL VITAMIN 1 TAB PO SCH (08:00)
[2023-02-07] MEDS: DOCUSATE SODIUM 100 MG CAP PO SCH (08:40)
[2023-02-07] MEDS ORDERED: bisacodyL 5 MG TABEC PO SCH (20:00)
== END 2023-02-07 17:25 | disposition home or self-care (01) | DRG 806 ==
LOC: 4S1 07:45 → 4E2 20:01